=== PATIENT | male | born 1995 | race Caucasian/White ===

== ENCOUNTER 2017-08-31 23:03 | Emergency (ER) | payer OTHER ==
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
[2017-09-01] MEDS ORDERED: LIDOCAINE 1%/EPINEPHRINE INJ 20 ML VIAL INJ ONE (00:07)
[2017-09-01 00:48] VITALS: BP 125/68
== END 2017-09-01 00:43 | disposition home or self-care (01) ==
LOC: ER 23:03
PROC: 0HQBXZZ Repair Right Upper Arm Skin, External Approach (ICD-10-PCS; principal; 2017-08-31)
DX: S41.011A Laceration without foreign body of right shoulder, initial encounter (principal); W25.XXXA Contact with sharp glass, initial encounter
CPT/HCPCS: 99282; 12002; J3490

== ENCOUNTER 2018-03-05 19:47 | Emergency (ER) | payer OTHER ==
--- NOTE | 2018-03-05 21:21 | ER Document Report ---
ED General - General Chief Complaint: Cough Stated Complaint: COUGH Time Seen by Provider: 03/05/18 20:17 TRAVEL OUTSIDE OF THE [place] IN LAST 30 DAYS: No - Related Data Allergies/Adverse Reactions: No Known Drug Allergies Allergy (Verified 08/31/17 23:13) Past Medical History - Social History Smoking Status: Former Smoker Family History: Reviewed & Not Pertinent Patient has suicidal ideation: No Patient has homicidal ideation: No Renal/ Medical History: Denies: Hx Peritoneal Dialysis Discharge - Discharge Clinical Impression: Cough Condition: Good Disposition: HOME, SELF-CARE Instructions: Bronchitis ([facility])
--- NOTE | 2018-03-05 21:35 | RADIOLOGY REPORT (SQ) ---
EXAM DESCRIPTION: CHEST 2 VIEWS COMPLETED DATE/TIME: 03/05/2018 9:26 pm REASON FOR STUDY: Persisten cough COMPARISON: None. EXAM PARAMETERS: NUMBER OF VIEWS: two views TECHNIQUE: Digital Frontal and Lateral radiographic views of the chest acquired. RADIATION DOSE: NA LIMITATIONS: none FINDINGS: LUNGS AND PLEURA: No opacities, masses or pneumothorax. No pleural effusion. MEDIASTINUM AND HILAR STRUCTURES: No masses or contour abnormalities. HEART AND VASCULAR STRUCTURES: Heart normal size. No evidence for failure. BONES: No acute findings. HARDWARE: None in the chest. OTHER: No other significant finding. IMPRESSION: NO ACUTE RADIOGRAPHIC FINDING IN THE CHEST. TECHNICAL DOCUMENTATION: JOB ID: [id number] [employer]- All Rights Reserved Reading location - IP/workstation name: [email or web address]
--- NOTE | 2018-03-05 21:35 | ER Document Report ---
ED General - General Chief Complaint: Cough Stated Complaint: COUGH Time Seen by Provider: 03/05/18 20:17 TRAVEL OUTSIDE OF THE [place] IN LAST 30 DAYS: No - HPI Notes: 23-year-old male who presents with persistent cough. Patient states that for the last 2-1/2-3 weeks he has had persistent cough. Initially started as some congestion runny nose and more productive cough. He has had no fever, no hemoptysis. He traveled back from [place] approximately week and a half ago. No fever or night sweats. Gradual in onset. No other modifying factors, no other associated symptoms, no other provocative or palliative factors. - Related Data Allergies/Adverse Reactions: No Known Drug Allergies Allergy (Verified 08/31/17 23:13) Past Medical History - Social History Smoking Status: Former Smoker - Quit 2 weeks ago Drug Abuse: None Family History: Reviewed & Not Pertinent Patient has suicidal ideation: No Patient has homicidal ideation: No - Medical History Medical History: Negative Renal/ Medical History: Denies: Hx Peritoneal Dialysis Review of Systems - Review of Systems Notes: Review of systems as in the history of present illness, otherwise negative. Physical Exam - Notes Notes: General: Well developed . HEENT: Normocephalic, atraumatic. Pupils equal round reactive to light. No JVD. Chest: No trauma. Respiratory: Good air exchange, normal excursion. Cardiac: Regular rhythm. No murmurs or gallops. Abdomen: Soft, benign. Nondistended. Nontender. Back: No asymmetry or gross abnormality. Motor: Grossly normal power and tone. Neurologic: Alert, nonfocal. Cranial nerves II-12 are intact. Sensation intact. Vascular: Well perfused. Normal peripheral pulses. Skin: No petechiae or purpura. Course - Re-evaluation Re-evalutation: Appearing 23-year-old male with the after mentioned symptoms. This may be an early viral bronchitis which is exacerbated by continuous injury secondary to smoking. He is not wheezing, I do not appreciate any exam findings that suggest consolidation. He has no fever or other high risk features such as hemoptysis or significant weight loss. Given the persistence of his cough, I will obtain plain films and reevaluate. Films show no evidence of acute pneumonia. He is discharged home to follow close with his primary care physician. Discharge - Discharge Clinical Impression: Cough Condition: Good Disposition: HOME, SELF-CARE Instructions: Bronchitis ([facility])
== END 2018-03-05 21:26 | disposition home or self-care (01) ==
LOC: ER 19:47
DX: R05 Cough (principal); R09.81 Nasal congestion; R09.89 Other specified symptoms and signs involving the circulatory and respiratory systems; Z87.891 Personal history of nicotine dependence
CPT/HCPCS: 71046; 99283

== ENCOUNTER 2018-09-06 15:00 | Emergency (ER) | payer OTHER ==
[2018-09-06] MEDS ORDERED: RINGERS SOLUTION,LACTATED 1,000 ML IV ONE (15:26)
[2018-09-06] MEDS ORDERED: HYDROMORPHONE HCL INJ/PF 2 MG/ML AMPULE IV ONE (15:26)
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
[2018-09-06] MEDS ORDERED: HYDROMORPHONE HCL INJ/PF 2 MG/ML AMPULE IV PRN (18:34)
[2018-09-06 20:17] VITALS: BP 134/70
== END 2018-09-06 20:26 ==
LOC: ER 15:00
DX: T24.231A Burn of second degree of right lower leg, initial encounter (principal); R03.0 Elevated blood-pressure reading, without diagnosis of hypertension; M79.604 Pain in right leg; X08.8XXA Exposure to other specified smoke, fire and flames, initial encounter
CPT/HCPCS: 96376; 99284; 96361; 96374; J1170; J7120